=== PATIENT | male | born 1985 | race Caucasian/White ===

== ENCOUNTER 2017-05-20 11:46 | Emergency (ER) | payer MEDICAID ==
[~2017-05-20] VITALS: Ht 170.2 cm; Wt 64.1 kg
[~2017-05-20 11:46] MED LIST: BACTRIM DS 8001 TAB PO; CEPHALEXIN MON500 MG PO; KEFLEX 500MG.500 MG PO; PHENERGAN 25MG.25 M1 PO
--- OUTSIDE RECORDS SUMMARY | 2017-05-20 11:54 | External Medical Summary Rpt | CCD ---
Author Author , NONA CASTELLANO Address Unknown Phone [email or web address] Purpose Continuity of Care Document - through 2016
--- OUTSIDE RECORDS SUMMARY | 2017-05-20 11:54 | External Medical Summary Rpt | CCD ---
Author Author , NONA CASTELLANO Address Unknown Phone [email or web address] Purpose Continuity of Care Document - through 2016
--- OUTSIDE RECORDS SUMMARY | 2017-05-20 11:55 | External Medical Summary Rpt | CCD ---
Demographics Preferred Language Stateless Marital Status Unknown Restoration Affiliation Unknown Race Unknown Ethnic Group Unknown Author Author , NONA CASTELLANO Address Unknown Phone Immunization No patient found.
--- OUTSIDE RECORDS SUMMARY | 2017-05-20 11:55 | External Medical Summary Rpt | CCD ---
Author Author [employer] Organization [employer] Address Unknown Phone Unavailable Purpose Continuity of Care Document - through 2016
--- OUTSIDE RECORDS SUMMARY | 2017-05-20 11:55 | External Medical Summary Rpt ---
Author Author [employer], [employer] Organization [employer] Address Unknown Phone Unavailable
--- OUTSIDE RECORDS SUMMARY | 2017-05-20 11:55 | External Medical Summary Rpt | CCD ---
Demographics Preferred Language Lebanese Marital Status Unknown Holiness Affiliation Unknown Race Unknown Ethnic Group Unknown Author Author , NONA CASTELLANO Address Unknown Phone Immunization No patient found.
--- NOTE | 2017-05-20 12:29 | Urgent Treatment Center Report ---
History of Present Issue Date/Time Seen by Provider 05/20/17 1222 Visit Reason Pt arrived:Walked Presenting Problem:PT C/O OF COUGH, HEAD CONGESTION, RENEE, AND BODY ACHES Location if Accident: Onset of symptoms date/time:/ or onset unknown for:MEDICAL HX UNKNOWN Have you (or family members/close friends) recently traveled outside the [place]? N If Yes, where/when: Have you had exposure to infectious disease within the past month? TB? Other? Specify: Here w/ Aunt c/o rhinorrhea, nasal congestion, cough, head pressure and feeling achy x 2 days. Dimetapp yesterday and today hasn't helped. Nonsmoker but chews tobacco. No SOA, wheezing or known fevers. Aunt w/ same symptoms but worse that started several days prior. Source patient, family Exam Limitations no limitations ALLERGIES Uncoded Allergies: INGREDIENT: NO KNOWN - NO KNOWN DRUG ALLERGY (04/13/10) History Medical History General CAD? No Angina: No NV: No Hypertension? No Hyperlipidemia? No CHF? No DVT? No PE? No COPD? No Asthma? No Anemia? No GERD? No Gastric ulcers? No GI Bleed? No Hernia? No Thyroid Problems? No Hypothyroidism? No CVA? No Seizures? No Diabetes? No UTI? No Stones? No BPH? No GB Disease: No Asplenia? No Hepatitis? No Sickle Cell Disease? No Migraines? No Cataracts? No Glaucoma? No MRSA? No TB? No Cancer? No Immunization HX DT/Tetanus 01/28/11 Surgical Hx Previous Surgery?Y ORAL SURGERY FB REMOVED RIGHT EAR Social History Smoking Hx Smoker: Never Smoker Tobacco: Yes Type Snuff Alcohol Alcohol: No Review of Systems All Other Systems Reviewed and Negative Constitutional see HPI, denies chills, denies malaise Eyes denies drainage ENT see HPI, throat pain ("scratchy"). denies: ear pain, throat swelling, other ( sneezing). Respiratory see HPI Cardiovascular denies chest pain Gastrointestinal denies no symptoms reported Musculoskeletal see HPI Skin denies rash Psychiatric/Neurological headache ("behind my nose btwn my eyes") Physical Exam Vital Signs Vital Signs Date Time Temp Pulse Resp B/P Pulse O2 O2 Flow FiO2 Ox Delivery Rate 05/20 1218 98.1 72 20 130/79 98 General Appearance normal appearance, no apparent distress Eye Exam - bilateral eye normal exam Ear, Nose, Throat normal pharynx, nasal congestion, shelby EACs and TMs normal Neck non-tender, supple Respiratory Status Yes: trachea midline, chest symmetrical, non productive cough. No: respiratory distress, use of accessory muscles, pain on inspiration, pain on expiration, productive cough. Lung Sounds anterior: lungs clear. posterior: lungs clear. bilateral: lungs clear. Cardiovascular regular rate/rhythm, no peripheral edema, no murmur Neurologic alert, oriented x 3 Mental status normal mood/affect Skin normal color, warm/dry Lymphatic no adenopathy Medical Decision Making LABS/Meds/Orders Pt receiving controlled substance in ED? No Results/Orders Laboratory Tests 05/20/17 1223: Influenza Type A Ag NOT DETECTED, Influenza Type B Ag NOT DETECTED Orders Procedure Date/time Status [facility] FLU A,B 05/20 1223 Complete Departure Departure Time of Disposition 1247 Disposition DC Home or Self Care(routine) Clinical Impression Primary Impression: Upper respiratory virus Condition STABLE Referrals NO REFERRAL Follow up with your primary care doctor IMMEDIATELY for new or worsening symptoms OR no noticeable improvement over the next 48-72 hours. 911 for difficulty breathing or swallowing. Patient Instructions DI for Viral Upper Respiratory Infection -- Adult Additional Instructions * No sign of bacterial infection. Likely viral. Virus can take 7-14 days to run their course * Monitor Temp. Tylenol every 4 hours as needed no more then 5 times a day or 4000mg in 24 hours and/or ibuprofen every 6 hours as needed no more then 3200mg in 24 hours (as long as your primary care doctor has told you that it is ok to take both) for fever/aches/pain. ER if fever no less than 101 despite tylenol and ibuprofen * Encourage fluids, water, gatorade, powerade, pedialyte if infant/toddler/child * warm salt water gargles * warm fluids * sore throat lozenges * sleep elevated * humidifier/vaporizer * flonase 2 sprays each nostril daily but may take 2-3 days to notice improvement with it. * Bromfed may cause drowsiness. Know how it effects you (or your child) before driving, caring for small children, or sending your child to school. No other antihistamines/allergy medications while taking bromfed. Most over the counter cough syrups contain similiar ingrediants so dimetapp no longer necessary either Discharge Counseling Counseled pt/family regarding diagnosis, test results, medications/RX, home care, follow up needs Prescriptions Current Visit Scripts D-METHORPHAN HB/P-EPD HCL/BPM (Bromfed Dm Cough Syrup) 10 ML PO QIDP PRN cough #240 ML at 1256
[2017-05-20] MEDS ORDERED: BROMFED DM COU118 ML PO (12:50)
[2017-05-20 12:57] VITALS: BP 130/79
== END 2017-05-20 12:58 | disposition home or self-care (01) ==
LOC: UTC 11:46
DX: J06.9 Acute upper respiratory infection, unspecified (principal)